=== PATIENT | male | born 1965 | race Caucasian/White ===

== ENCOUNTER → 2018-06-17 | Outpatient (CLI) | payer OTHER ==
[2018-06-17 19:59] LABS: ALBUMIN 3.7 GM/DL (3.2-5.2); ALT/SGPT 21 U/L (12-78); BILIRUBIN,TOTAL 0.4 MG/DL (0.2-1.0); BLOOD UREA NITROGEN 17 MG/DL (7-18); CALCIUM LEVEL 8.4 MG/DL (8.5-10.1); CARBON DIOXIDE LEVEL 29 MEQ/L (21-32); CHLORIDE LEVEL 106 MEQ/L (98-107); CHOLESTEROL LEVEL 193 MG/DL (<200); CHOLESTEROL RISK RATIO 3.711 (<5); CREATININE FOR GFR 0.85 MG/DL (0.70-1.30); GLOMERULAR FILTRATION RATE > 60.0 (>56); GLUCOSE, FASTING 122 MG/DL (70-100); HDL CHOLESTEROL 52 MG/DL (>40); LDL CHOLESTEROL 119 MG/DL (<100); NON-HDL-C 141 MG/DL; POTASSIUM SERUM 4.3 MEQ/L (3.5-5.1); SODIUM LEVEL 141 MEQ/L (136-145); TOTAL PROTEIN 6.9 GM/DL (6.4-8.2); TRIGLYCERIDES LEVEL 108 MG/DL (<150)
== END ==
LOC: M LRY 09:11
PROVIDERS: ATTEND Nurse Practitioner Family
DX: I10 Essential (primary) hypertension (principal); E78.49 Other hyperlipidemia; N40.0 Benign prostatic hyperplasia without lower urinary tract symptoms

== ENCOUNTER 2024-01-24 08:04 | Day surgery (SDC) | payer OTHER ==
[~2024-01-24] VITALS: Ht 190.5 cm; Wt 91.8 kg
[~2024-01-24 08:04] MED LIST: ASPI81TA26 PO; FLUO-365 PO; LISI20TA33 PO; PHENYLEPHRINE 10% OPHTH SOL 5ML OS PRN; ROSU5TAB40 PO
[2024-01-24] MEDS: TROPICAMIDE 1% OPHTH SOLN 15ML OS SCH (09:52)
[2024-01-24] MEDS: OFLOXACIN 0.3 % (OCUFLOX) OPTH SOL 5ML OS ONE (09:52)
[2024-01-24] MEDS: PHENYLEPHRINE 2.5% OPHTH SOL 2ML OS SCH (09:53)
[2024-01-24] MEDS: ATROPINE SULFATE 1% OPHTH SOLN 2ML BTL OS SCH (09:53)
[2024-01-24] MEDS: LIDOCAINE 3.5 % 1ML OPHTH TOPICAL GEL OU ONE (09:53)
[2024-01-24] MEDS ORDERED: MIDAZOLAM INJ 2MG/2ML VIAL As Ordered ONE (11:01)
[2024-01-24] MEDS ORDERED: fentaNYL 100 MCG/2 ML INJECTION As Ordered ONE (11:01)
[2024-01-24] MEDS: LIDOCAINE 1% SDV 5ML VIAL As Ordered ONE (11:05)
[2024-01-24] MEDS: BSS IRRIG/VANCO(10MG)/TOBRA(5MG)/EPINEPH(1:1000-0.5CC)500ML BAG-ORONLY As Ordered ONE (11:05)
[2024-01-24] MEDS: CEFUROXIME 1MG/0.1ML INTRACAMERAL INJ As Ordered ONE (11:05)
[2024-01-24] MEDS: CARBACHOL 0.01% OPHTH SOLN 1.5ML VIAL As Ordered ONE (11:19)
[2024-01-24 11:25] VITALS: BP 114/60; TEMP 97.3; O2SAT 98
== END 2024-01-24 12:08 | disposition home or self-care (01) ==
LOC: M SDC 08:04
PROVIDERS: ATTEND Ophthalmology
DX: H25.12 Age-related nuclear cataract, left eye (principal); I10 Essential (primary) hypertension; E78.00 Pure hypercholesterolemia, unspecified; Z79.899 Other long term (current) drug therapy; Z79.82 Long term (current) use of aspirin; D69.9 Hemorrhagic condition, unspecified
CPT/HCPCS: 66984; 92015; J0697; J2250; J3010; V2788

== ENCOUNTER → 2025-05-12 | Outpatient (CLI) | payer OTHER ==
[~2025-05-12] MED LIST changes: -PHENYLEPHRINE 10% OPHTH SOL 5ML OS PRN; -ROSU5TAB40 PO; +ROSU5TAB49 PO
== END ==
LOC: M EKG 13:32
PROVIDERS: ATTEND Nurse Practitioner Family
DX: R00.2 Palpitations (principal)